=== PATIENT | male | born 1985 | race Caucasian/White ===

== ENCOUNTER 2019-07-07 21:11 | Emergency (ER) | payer MEDICAID ==
[~2019-07-07] VITALS: Ht 188 cm; Wt 108.9 kg
[2019-07-07 21:20] VITALS: BP 121/87
[2019-07-07] MEDS ORDERED: methylPREDNISolone SOD SUCC 125 MG/2 ML VL IM ONE (22:00)
[2019-07-07] MEDS ORDERED: cefTRIAXone SOD 1,000 MG VL IM ONE (22:00)
== END 2019-07-07 22:48 | disposition home or self-care (01) ==
LOC: ER 21:17
DX: B86 Scabies (principal)
CPT/HCPCS: 96372; 99283; J0696; J2930